=== PATIENT | female | born 2000 | race African-American/Black ===

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

== ENCOUNTER 2022-01-30 10:53 | Emergency (ER) | payer OTHER, SELFPAY ==
[2022-01-30 10:54] VITALS: BP 117/62; PULSE 59; RESP 14; TEMP 36.3; O2SAT 100; BMI 21.7
--- NOTE | 2022-01-30 11:36 | EX.ED.DYSGE1 ---
HPI History of Present Illness Chief Complaint: Bite Detail of Chief Complaint: Rash right lateral rib cage. Informant: patient Onset/Context/Timing Onset: Days Context: Gradual Onset Timing: Continuous Current Severity: Mild Maximum Severity: Mild Narrative Narrative: 21-year-old female no past medical history. Developed a rash on her right rib cage with some mild discomfort. Was seen in [facility] x2. First visit was told thought this was a local allergic reaction. Second visit thought it might be shingles. Denies any fever or chills. Actually placed her on methylprednisolone. Also gabapentin and acyclovir. States not improving. But no significant worsening. Prior similar symptoms: No Recent Illness/Hospitalization: No PFSH PFSH no medical history Home Medications albuterol sulfate 90 mcg/actuation aerosol inhaler (Ventolin HFA) 1 puff inhalation Q4H PRN PRN Sob &/Or Wheezing 02/25/17 [History Last Taken Unknown] prednisone 10 mg tablet 10 mg PO UD #33 tabs 02/25/17 [Rx Last Taken Unknown] cephalexin 500 mg capsule 500 mg PO Q6 7 days #28 caps 01/30/22 [Rx Last Taken Unknown] Allergy/AdvReac Type Severity Reaction Status Date / Time No Known Allergies Allergy Verified 01/30/22 10:54 Social History Smoking Status: Never smoker ROS ROS ED ROS Narrative Right rib cage rash. Review of Systems ROS Unobtainable: Denies due to encephalopathy Constitutional Constitutional ED: Denies chills or fever(s) Eyes Eyes: Denies blurry vision ENT ENT ED: Denies ear pain Cardiovascular Cardiovascular: Denies chest pain Respiratory/Chest Respiratory/Chest: Denies cough Gastrointestinal Gastrointestinal: Denies abdominal pain Genitourinary Genitourinary ED: Denies dysuria Musculoskeletal Musculoskeletal: Denies arthralgias Integumentary Reports rash; Denies abscess Neurologic Neurologic: Denies headache(s) Psychiatric Psychiatric: Denies anxiety Endocrine Endocrinology: Denies cold intolerance Hematologic/Lymphatic Hematologic/Lymphatic: Reports none Allergic/Immunologic Allergic/Immunologic ED: Denies mouth swelling or tongue swelling EXAM Physical Exam Narrative Exam Narrative: 21-year-old female no acute distress vital signs stable afebrile. HEENT normal. Neck nontender. Lungs are clear. Heart regular rhythm no murmur. Abdomen soft nontender. Right lateral lower rib cage is an area approximately 5 to 6 inches in diameter that circular that is red mildly tender and warm. This is either just a local allergic reaction or local allergic reaction and has a secondary infection. At this time this is absolutely not shingles. There is no crusting. Is not in a dermatomal pattern. There is no rash anywhere else. Otherwise exam normal. Const Vital Signs: 01/30/22 10:54 Temperature 97.3 F L Temperature Source Temporal Pulse Rate 59 L Respiratory Rate 14 Blood Pressure 117/62 Blood Pressure Mean 80 Pulse Ox 100 Oxygen Delivery Method Room Air Positive well nourished and well developed; Negative for obese, cachectic or unkempt General Appearance ED: well developed and NAD; Negative for unkempt, cachectic, cyanotic or diaphoretic Nutritional Appearance: Negative for cachectic or obese HEENT Reports moist mucous membranes; Denies dry mucous membranes Negative for trauma Mouth ED: No dry mucous membranes Mouth: No dry mucous membranes Eyes PERRL and EOMs intact bilaterally General Eye ED: Negative for pale conjunctiva or scleral icterus Neck no lymphadenopathy, supple and no JVD General: Negative for tenderness Lymph Lymphatic: Negative for other Chest Wall inspection of chest normal and palpation of chest normal Chest Narrative: Right lateral rib cage circular area, red, slightly warm. No vesicles. No crusting. No discharge. Consistent with a local allergic reaction possibly secondarily infected. Resp normal respiratory effort and clear to auscultation bilaterally Effort and Inspection: Negative for retractions Auscultation: Negative for rales or rhonchi Cardio regular rate, regular rhythm, S1 normal heart sound, S2 normal heart sound and no murmurs Rate: Negative for bradycardia GI normal to inspection, nondistended, normoactive bowel sounds, non-tender, non-distended and no masses Auscultation: normoactive bowel sounds Palpation: soft Back/Spine no CVA tenderness General Back: Negative for CVA tenderness Cervical Spine: Negative for cervical spine tenderness Thoracic Spine / Upper Back: Negative for thoracic spinal tenderness Lumbar Spine / Lower Back: Negative for lumbar spinal tenderness Extremity normal to inspection General Extremety ED: Negative for edema or tenderness General Extremity: Negative for edema Neuro oriented x3 Sensorium / Orientation: alert; Negative for orientation impaired Motor Exam: strength 5/5 throughout Psych mental status grossly normal Appearance: Negative for unkempt Attitude: No agitated Mood & Affect: Negative for depressed, anxious or tearful Skin No no rashes or lesions noted and no wounds Lesions: No lesion noted Rashes: rashes noted Trauma: Negative for abrasion Wounds: Negative for wounds noted MDM MDM MDM Narrative Medical decision making narrative: Patient with a rash right lateral rib cage consistent with acute local allergic reaction and/or possibly secondary infection. Already on methylprednisolone taper pack. I will add Keflex 4 times a day for a week. She will be instructed to stop the gabapentin and stop the acyclovir. Discharge Plan Triage Chief Complaint: Bite ED Provider: Ulysses Cintron Dx/Rx/DC Orders Clinical Impression: Allergic reaction, Cellulitis Instructions: ED Cellulitis, ED Insect Sting, Local Reaction Prescriptions: New cephalexin 500 mg capsule 500 mg PO Q6 7 Days Qty: 28 0RF No Action albuterol sulfate [Ventolin HFA] 1 INHALER inhaler 1 puff inhalation Q4H PRN PRN (Reason: Sob &/Or Wheezing) prednisone 10 MG tablet 10 mg PO UD Qty: 33 0RF Rx Instructions: Take 4 tablets daily for 3 days, then 3 daily for 3 days, then 2 daily for 3 days, then 1 a day for 3 days then 1 QOD for 3 doses. Primary Care Provider: Fiordaliza Cuevas Referrals: Fiordaliza Cuevas MD [Primary Care Provider] - 1 Week if not improving Activity Restrictions/Additional Instructions: Most likely this is just a local allergic reaction to some type of insect bite or sting. Cool compress. Finish the methylprednisolone prescription they put you on from [place]. It may be a secondary infection less likely. For that reason I put her on antibiotic Keflex 1 pill 4 times a day for a week. This is not shingles. You can stop the gabapentin. You can also stop the acyclovir. Ice or cool compresses to the area. Benadryl for itching. This should progressively start improving. If not return or follow-up with your doctor. Disposition Disposition: Home, Self Care
[2022-01-30] MEDS: Cephalexin 250 MG Capsule 500 MG PO (12:12)
== END 2022-01-30 12:15 | disposition home or self-care (01) ==
PROVIDERS: Emergency Provider Emergency Medicine; Visit Provider Emergency Medicine
DX: T78.40XA Allergy, unspecified, initial encounter (principal); L03.90 Cellulitis, unspecified; Z79.52 Long term (current) use of systemic steroids; X58.XXXA Exposure to other specified factors, initial encounter
CPT/HCPCS: 99283

== ENCOUNTER 2022-02-24 08:11 | Emergency (ER) | payer OTHER, SELFPAY ==
[2022-02-24 08:11] VITALS: BP 130/79; PULSE 92; RESP 16; TEMP 36.6; O2SAT 100; BMI 22.1
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
--- NOTE | 2022-02-24 08:45 | RAD_ITS ---
STUDY: X-RAY - RIGHT SHOULDER REASON FOR EXAM: Female, 21 years old. Pain following recent injury. TECHNIQUE: 4 view(s) of the shoulder. COMPARISON: None. FINDINGS: Normal glenohumeral articulation. Normal acromioclavicular joint. Normal acromion. Normal humeral head and visualized proximal humerus. The soft tissue structures are unremarkable. Normal visualized pulmonary apex. RAD/Shoulder min 2 Views IMPRESSION: Normal x-ray examination of the shoulder. Electronically Signed: Jose Ames MD at 9:12 EDT ,
[2022-02-24] MEDS: Acetaminophen 500 MG Tablet 1000 MG PO (09:06)
[2022-02-24 10:02] VITALS: BP 108/74; PULSE 81; RESP 16; O2SAT 99
== END 2022-02-24 10:03 | disposition home or self-care (01) ==
PROVIDERS: Emergency Provider Emergency Medicine; PCP Nurse Practitioner Family; Visit Provider Emergency Medicine
DX: S06.0X0A Concussion without loss of consciousness, initial encounter (principal); R11.0 Nausea; G44.309 Post-traumatic headache, unspecified, not intractable; S43.51XA Sprain of right acromioclavicular joint, initial encounter; Z79.899 Other long term (current) drug therapy; V49.50XA Passenger injured in collision with unspecified motor vehicles in traffic accident, initial encounter
CPT/HCPCS: 73030; 99283